=== PATIENT | male | born 1975 | race African-American/Black ===

== ENCOUNTER 2017-06-11 14:44 | Outpatient (CLI) | payer BC | END 2017-06-11 14:45 | disposition home or self-care (01) | LOC: BICMRI 14:44 | PROVIDERS: ATTEND Physician Assistant Surgical | DX: M51.16 Intervertebral disc disorders with radiculopathy, lumbar region (principal) | CPT/HCPCS: 72148 ==

== ENCOUNTER → 2017-07-06 | Day surgery (SDC) | payer BC ==
[2017-07-05 10:57] VITALS: BMI 38.7
[~2017-07-06] MED LIST: Bacitracin Zinc Ointment 30 gm TUBE ONE; CEFAZOLIN/Water 2 GM/20 ML SYRINGE ONE; Fentanyl 100 MCG/2 ML VIAL ONE; Fentanyl 250 MCG/5 ML VIAL ONE; Sodium Chloride 0.9% 10 ML ONE; Thrombin 5000 UNITS/5 ML VIAL ONE
[2017-07-06 10:55] LABS: Hemoglobin 13.8 g/dL (14.0-18.0); Mean Corpuscular HGB CONC 31.4 g/dL (32.0-36.0); Mean Corpuscular Hemoglobin 23.6 pg (27.0-31.0); Mean Corpuscular Volume 75.2 fl (80.0-94.0); Mean Platelet Volume 8.6 fL (7.4-10.4); Platelet Count 211 thou/uL (130-400); RBC Distribution Width 14.7 % (11.5-14.5); Red Blood Cell (RBC) Count 5.82 mill/uL (4.70-6.10); White Blood Cell (WBC) Count 6.8 thou/uL (4.8-10.8)
[2017-07-06 11:01] LABS: INR-International Normal Ratio 1.1; PTT 27.9 SEC (22.9-36.1)
[2017-07-06 11:13] LABS: Anion Gap 10 mmol/L (10-20); BUN (Urea Nitrogen) 11 mg/dL (8.9-20.6); Calc. Creatinine Clearance 139 mL/min (70-130); Calcium 9.4 mg/dL (7.8-10.44); Carbon Dioxide 27 mmol/L (22-29); Chloride 106 mmol/L (98-107); Estimated GFR-MDRD 86; Glucose 128 mg/dL (70-105); Potassium 4.1 mmol/L (3.5-5.1); Sodium 139 mmol/L (136-145)
== END ==
LOC: SDC 09:58
PROVIDERS: ATTEND Surgery
DX: M54.16 Radiculopathy, lumbar region (principal); I10 Essential (primary) hypertension; E78.5 Hyperlipidemia, unspecified; Z53.8 Procedure and treatment not carried out for other reasons; Z79.02 Long term (current) use of antithrombotics/antiplatelets; Z79.82 Long term (current) use of aspirin; Z79.899 Other long term (current) drug therapy; Z87.891 Personal history of nicotine dependence
CPT/HCPCS: 36415; 80048; 85027; 85610; 85730; 93005; 93010; A4216; J0131; J3010; J3370; J3490

== ENCOUNTER 2017-07-08 08:11 | Day surgery (SDC) | payer BC ==
[2017-07-08] MEDS ORDERED: Bacitracin Zinc Ointment 30 gm TUBE ONE (08:14)
[2017-07-08] MEDS ORDERED: Thrombin 5000 UNITS/5 ML VIAL ONE (08:14)
[2017-07-08] MEDS ORDERED: Sodium Chloride 0.9% 10 ML ONE (08:14)
[2017-07-08] MEDS ORDERED: Midazolam HCl 2 mg/2 ml Vial ONE (08:32)
[2017-07-08] MEDS ORDERED: Fentanyl 100 MCG/2 ML VIAL ONE ×2 (08:32→13:37)
[2017-07-08] MEDS ORDERED: Phenylephrine HCL 10 MG/ML VIAL ONE (09:16)
[2017-07-08] MEDS ORDERED: CEFAZOLIN/Water 2 GM/20 ML SYRINGE ONE (09:34)
[2017-07-08] MEDS ORDERED: Albuterol Sulfate HFA (OR ONLY) ONE (10:13)
[2017-07-08] MEDS ORDERED: Ondansetron HCl/PF 4 MG/2 ML Vial IVP PRN ×2 (13:07→13:12)
[2017-07-08] MEDS ORDERED: Promethazine HCl 25 MG/ML VIAL SLOW IVP PRN (13:07)
[2017-07-08] MEDS ORDERED: Promethazine HCl 25 MG/ML VIAL IM PRN ×2 (13:07→13:12)
[2017-07-08] MEDS ORDERED: Bisacodyl 10 MG SUPP PR PRN (13:12)
[2017-07-08] MEDS ORDERED: Fleet Enema 133 ML BOT PR PRN (13:12)
[2017-07-08] MEDS ORDERED: Acetaminophen/Codeine 30-300mg Tablet PO PRN (13:12)
[2017-07-08] MEDS ORDERED: Milk Of Magnesia 30 ML UDCUP PO PRN (13:12)
[2017-07-08] MEDS ORDERED: Acetaminophen 325 MG TAB PO PRN (13:12)
[2017-07-08] MEDS ORDERED: Mag-Al 1200 mg/1200 mg/30 ML UDCUP PO PRN (13:12)
[2017-07-08] MEDS ORDERED: Non-Formulary Item 1 EACH (Hydralazine Hcl [Hydralazine Hcl] 50 MG) PO SCH (15:00)
[2017-07-08 15:48] VITALS: BMI 40.3
[2017-07-08] MEDS: hydrALAZINE 25 MG TAB PO SCH ×2 (15:54→20:51)
[2017-07-08] MEDS: HYDROcodone/Acetaminophen 7.5/325 mg Tablet PO PRN ×2 (15:54→20:02)
[2017-07-08] MEDS: Sodium Chloride 0.9% 1,000 ML IV SCH (15:58)
[2017-07-08] MEDS ORDERED: CEFAZOLIN/Water 2 GM/20 ML SYRINGE SLOW IVP SCH (18:00)
[2017-07-08] MEDS: traMADol HCl 50 MG TAB PO PRN (18:23)
[2017-07-08] MEDS: CEFAZOLIN/Water 2 GM/20 ML SYRINGE SLOW IVP SCH (20:02)
[2017-07-08] MEDS: Metoprolol Tartrate 25 MG TAB PO SCH (20:52)
[2017-07-08] MEDS ORDERED: Atorvastatin Calcium 10 MG TAB PO SCH (21:00)
[2017-07-08] MEDS: tiZANidine HCl 4 MG TAB PO PRN (23:21)
--- NOTE | 2017-07-08 23:31 | OP ---
SURGEON: Layo Dunn MD FABRIC CUTTER: Braeden Weinberg PA-C PREPROCEDURE DIAGNOSES: Left S1 radiculopathy, left L5-S1 disk extrusion. POSTPROCEDURE DIAGNOSES: Left S1 radiculopathy, left L5-S1 disk extrusion. PROCEDURES: 1. Left L5-S1 hemilaminotomy, foraminotomy, and diskectomy. 2. Use of operative microscope for microdissection. DESCRIPTION OF PROCEDURE: After informed consent was obtained, the patient brought to OR. Proper pa tient pause and identification was carried out. He was placed prone on the OR table. Following gene ral anesthesia, L5-S1 segment was identified. Linear yomi was made. This region was sterilely clean sed, prepared, and draped. The wound was then opened and left L5-S1 hemilamina was exposed. Localiz ation confirmed our area of interest. Left L5-S1 hemilaminotomy was then performed with removal of y ellow ligament. The microscope was brought in for microdissection. Disk material was identified and removed. This resulted in excellent decompression of the left S1 nerve root I should free in the le ft L5 nerve root. Copious irrigation occurred. Hemostasis was maximized. The wound was closed in a natomic layers. There was no spinal fluid leak.
[2017-07-09] MEDS: HYDROcodone/Acetaminophen 7.5/325 mg Tablet PO PRN (03:39)
[2017-07-09] MEDS: CEFAZOLIN/Water 2 GM/20 ML SYRINGE SLOW IVP SCH (03:39)
[2017-07-09] MEDS: Sodium Chloride 0.9% 1,000 ML IV SCH (04:38)
[2017-07-09] MEDS: tiZANidine HCl 4 MG TAB PO PRN (05:59)
[2017-07-09 07:48] VITALS: TEMP 98.5
[2017-07-09] MEDS: Metoprolol Tartrate 25 MG TAB PO SCH (08:21)
[2017-07-09] MEDS: hydrALAZINE 25 MG TAB PO SCH (08:22)
[2017-07-09] MEDS: traMADol HCl 50 MG TAB PO PRN (08:22)
[2017-07-09 08:55] VITALS: BP 114/60
[2017-07-09] MEDS ORDERED: FLU VACC QS2017-18 36 mo. & older 0.5 ML SYRINGE IM ONE (09:00)
[2017-07-09] MEDS ORDERED: Lisinopril 20 MG TAB PO SCH (09:00)
== END 2017-07-09 09:58 | disposition home or self-care (01) ==
LOC: SDC 08:11 → SURG A 13:12 → SDC 07-09 09:58
PROVIDERS: ATTEND Surgery
PROC: 0SB20ZZ Excision of Lumbar Vertebral Disc, Open Approach (ICD-10-PCS; principal; 2017-07-09)
PROC: 01NB0ZZ Release Lumbar Nerve, Open Approach (ICD-10-PCS; principal; 2017-07-09)
DX: M51.17 Intervertebral disc disorders with radiculopathy, lumbosacral region (principal); Z79.82 Long term (current) use of aspirin; Z79.899 Other long term (current) drug therapy
CPT/HCPCS: 76001; 96374; A4216; J2250; J2370; J3010; J3490

== ENCOUNTER 2018-02-11 04:33 | Emergency (ER) | payer BC, OTHER ==
[2018-02-11] MEDS ORDERED: carBAMazepine 200 MG TAB PO SCH (05:00)
--- NOTE | 2018-02-11 08:09 | CT ---
PRELIMINARY REPORT/[facility]/EMERGENTY AFTER-HOURS PROCEDURE CT Head Without Intravenous Contrast EXAM DATE/TIME: 02/11/2018 5:16 AM CLINICAL HISTORY: 42 years old, male; Pain; Other: Face/ tooth pain; Patient HX: Er-8, CT brain w/o, shooting trigemina l nerve pain, m42 presents with intermittent stabbing l sided facial pain lasting 10-15 seconds that occurs about every hour and a half onset yesterday. PT states pain feels like a deep tooth ache. PT d enies any fb to ear. TECHNIQUE: Axial computed tomography images of the head/brain without intravenous contrast. COMPARISON: No relevant prior studies available. FINDINGS: Brain: Normal. No hemorrhage. No significant white matter disease. No edema. Ventricles: Normal. No ventriculomegaly. Bones/joints: Normal. No acute fracture. Sinuses: Normal as visualized. No acute sinusitis. Mastoid air cells: Normal as visualized. No mastoid effusion. Soft tissues: Normal. IMPRESSION: No acute intracranial abnormality. Thank you for allowing us to participate in the care of your patient. Dictated and Authenticated by: Alexander Dang MD 02/11/2018 5:32 AM Central Time ([place] & [place]) FINAL REPORT CT BRAIN WITHOUT CONTRAST: I agree with the preliminary report given by Dr. Alexander Dang of [facility]. POS: [facility]
== END 2018-02-11 05:48 | disposition home or self-care (01) ==
LOC: ERS 04:33
DX: G50.0 Trigeminal neuralgia (principal); I10 Essential (primary) hypertension; Z87.891 Personal history of nicotine dependence; Z79.899 Other long term (current) drug therapy; Z79.82 Long term (current) use of aspirin
CPT/HCPCS: 70450

== ENCOUNTER 2018-07-19 20:59 | Emergency (ER) | payer OTHER ==
[2018-07-19 21:28] LABS: #Basophils 0.1 thou/uL (0.0-0.2); #Eosinphils 0.2 thou/uL (0.0-0.7); #Lymphocytes 3.4 thou/uL (1.20-3.40); #Monocytes 0.9 thou/uL (0.11-0.59); #Neutrophils 5.4 thou/uL (1.40-6.50); %Basophils 1.1 % (0.0-1.0); %Eosinophils 2.3 % (0.0-10.0); %Monocytes 8.8 % (0.0-10.0); %Neutrophils 53.8 % (42.0-75.0); Hemoglobin 12.2 g/dL (14.0-18.0); Mean Corpuscular HGB CONC 31.4 g/dL (32.0-36.0); Mean Corpuscular Hemoglobin 23.7 pg (27.0-31.0); Mean Corpuscular Volume 75.6 fL (78.0-98.0); Mean Platelet Volume 8.6 fL (7.4-10.4); Platelet Count 251 thou/uL (130-400); RBC Distribution Width 14.4 % (11.5-14.5); Red Blood Cell (RBC) Count 5.13 mill/uL (4.70-6.10); White Blood Cell (WBC) Count 10.1 thou/uL (4.8-10.8)
--- NOTE | 2018-07-19 21:29 | RAD ---
CHEST ONE VIEW: 07/19/18 at 9:21 p.m. HISTORY: Left sided chest pain. FINDINGS: Comparison made with exam of 12/23/15. The heart size is normal. The lungs are expanded without focal areas of consolidation, pneumothoraces , or pleural effusions. IMPRESSION: No radiographic evidence of acute cardiopulmonary process. POS: [facility]
[2018-07-19 21:52] LABS: ALT (SGPT) 22 U/L (8-55); AST (SGOT) 16 U/L (5-34); Albumin 4.2 g/dL (3.5-5.0); Alkaline Phosphatase 109 U/L (40-150); Anion Gap 11 mmol/L (10-20); BUN (Urea Nitrogen) 12 mg/dL (8.9-20.6); Bilirubin, Total 0.2 mg/dL (0.2-1.2); CK (CPK) 619 U/L (30-200); Calc. Creatinine Clearance 0 mL/min (70-130); Calcium 9.5 mg/dL (7.8-10.44); Carbon Dioxide 25 mmol/L (22-29); Chloride 105 mmol/L (98-107); Estimated GFR-MDRD Greater than 90; Globulin 3.5 g/dL (2.4-3.5); Glucose 137 mg/dL (70-105); Lipase 25 U/L (8-78); Potassium 3.3 mmol/L (3.5-5.1); Protein, Total 7.7 g/dL (6.0-8.3); Sodium 138 mmol/L (136-145)
== END 2018-07-19 22:44 | disposition left against medical advice (07) ==
LOC: ERS 20:59
DX: Z53.21 Procedure and treatment not carried out due to patient leaving prior to being seen by health care provider (principal)
CPT/HCPCS: 36415; 71045; 80053; 82550; 83690; 83880; 84484; 85025; 93005

== ENCOUNTER 2019-01-17 08:33 | Outpatient (CLI) | payer OTHER ==
--- NOTE | 2019-01-17 09:05 | RAD ---
EXAM: XR Lumbar Spine Min 4 View PROVIDED CLINICAL HISTORY: Low back pain and left leg pain. COMPARISON: 05/13/2016 FINDINGS: The vertebral body heights are within normal limits. There is mild right convex curvature of the thor acolumbar spine. No fracture or subluxation is visualized. No abnormal translational motion is seen between the flexion and extension views. Minimal osteophytes are seen in the lower thoracic spine and to a lesser degree involving the lumbar spine. Views of the lower lumbar spine are stable compared to prior exam. IMPRESSION: Stable appearance of the lumbar spine with minimal degenerative changes, but no fracture or subluxati on is present.
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
[2019-01-17] MEDS ORDERED: Gadobenate Dimeglumine 529 MG/1 ML (20ML VIAL) ONE (10:09)
== END 2019-01-17 08:34 | disposition home or self-care (01) ==
LOC: TBSIIMAG 08:33
PROVIDERS: ATTEND Surgery
DX: M79.605 Pain in left leg (principal); M54.5 Low back pain; M47.816 Spondylosis without myelopathy or radiculopathy, lumbar region; M51.36 Other intervertebral disc degeneration, lumbar region; M48.061 Spinal stenosis, lumbar region without neurogenic claudication; D18.09 Hemangioma of other sites; L90.5 Scar conditions and fibrosis of skin
CPT/HCPCS: 72110; 72158; A9577

== ENCOUNTER 2019-06-13 12:18 | Outpatient (CLI) | payer BC ==
[2019-06-13 12:55] LABS: Hemoglobin 13.7 g/dL (14.0-18.0); Mean Corpuscular HGB CONC 31.8 g/dL (32.0-36.0); Mean Corpuscular Hemoglobin 24.1 pg (27.0-31.0); Mean Platelet Volume 8.5 fL (7.4-10.4); Platelet Count 220 thou/uL (130-400); RBC Distribution Width 14.6 % (11.5-14.5); Red Blood Cell (RBC) Count 5.68 mill/uL (4.70-6.10); White Blood Cell (WBC) Count 7.1 thou/uL (4.8-10.8)
[2019-06-13 13:11] LABS: INR-International Normal Ratio 0.9; Prothrombin Time 12.6 SEC (12.0-14.7)
[2019-06-13 13:17] LABS: Anion Gap 15 mmol/L (10-20); BUN (Urea Nitrogen) 15 mg/dL (8.9-20.6); Calc. Creatinine Clearance 0 mL/min (70-130); Calcium 10.1 mg/dL (7.8-10.44); Carbon Dioxide 28 mmol/L (22-29); Chloride 102 mmol/L (98-107); Estimated GFR-MDRD 76; Glucose 95 mg/dL (70-105); Potassium 3.8 mmol/L (3.5-5.1); Sodium 141 mmol/L (136-145)
[2019-06-13 13:29] LABS: PTT 25.9 SEC (22.9-36.1)
--- NOTE | 2019-06-15 08:25 | EKG ---
Test Reason : Blood Pressure : / mmHG Vent. Rate : 091 BPM Atrial Rate : 091 BPM P-R Int : 146 ms QRS Dur : 086 ms QT Int : 334 ms P-R-T Axes : 071 071 028 degrees QTc Int : 410 ms Normal sinus rhythm Normal ECG No previous ECGs available Confirmed by DR. Tosin LAWRENCE ([id number]) on 06/15/2019 8:25:18 AM Referred By: CHARO Confirmed By:DR. Tosin LAWRENCE
== END 2019-06-13 12:19 | disposition home or self-care (01) ==
LOC: LABBT 12:18
PROVIDERS: ATTEND Surgery
DX: Z01.818 Encounter for other preprocedural examination (principal)
CPT/HCPCS: 80048; 85027; 85610; 85730; 93005; 93010

== ENCOUNTER 2019-06-15 06:01 | Day surgery (SDC) | payer BC ==
[2019-06-13 12:12] VITALS: BMI 39.5
[2019-06-15] MEDS ORDERED: Thrombin 5000 UNITS/5 ML VIAL ONE (06:51)
[2019-06-15] MEDS ORDERED: Fentanyl 250 MCG/5 ML VIAL ONE (07:00)
[2019-06-15] MEDS ORDERED: Midazolam HCl 2 mg/2 ml Vial ONE (07:14)
[2019-06-15] MEDS ORDERED: Phenylephrine 10 MG/ML VIAL ONE (08:41)
[2019-06-15] MEDS ORDERED: HYDROmorphone 2 MG/ML VIAL SLOW IVP PRN (09:18)
[2019-06-15] MEDS ORDERED: Morphine Sulfate 2 MG/ML SYRINGE SLOW IVP PRN (09:18)
[2019-06-15] MEDS ORDERED: Promethazine HCl 25 MG/ML VIAL SLOW IVP PRN (09:18)
[2019-06-15] MEDS ORDERED: Promethazine HCl 25 MG/ML VIAL IM PRN (09:18)
[2019-06-15] MEDS ORDERED: Ondansetron HCl/PF 4 MG/2 ML Vial IVP PRN (09:18)
[2019-06-15] MEDS ORDERED: PACU-Morphine 4MG/ML VIAL SLOW IVP PRN (09:18)
[2019-06-15] MEDS ORDERED: Bisacodyl 10 MG SUPP PR PRN (09:52)
[2019-06-15] MEDS ORDERED: Milk Of Magnesia 30 ML UDCUP PO PRN (09:52)
[2019-06-15] MEDS ORDERED: Fleet Enema 133 ML BOT PR PRN (09:52)
[2019-06-15] MEDS ORDERED: Acetaminophen/Codeine 30-300mg Tablet PO PRN (09:52)
[2019-06-15] MEDS ORDERED: Ondansetron PF 4 MG/2 ML Vial IVP PRN (09:52)
[2019-06-15] MEDS ORDERED: traMADol HCl 50 MG TAB PO PRN (09:52)
[2019-06-15] MEDS ORDERED: Acetaminophen 325 MG TAB PO PRN (09:52)
[2019-06-15] MEDS ORDERED: Morphine 2 MG/ML SYRINGE SLOW IVP PRN (09:52)
[2019-06-15] MEDS ORDERED: Mag-Al 1200 mg/1200 mg/30 ML UDCUP PO PRN (09:52)
[2019-06-15] MEDS ORDERED: HYDROmorphone 2 MG/ML VIAL ONE (10:03)
[2019-06-15] MEDS ORDERED: Fentanyl 100 MCG/2 ML VIAL ONE ×2 (10:49→11:44)
[2019-06-15] MEDS ORDERED: Rocuronium Bromide 10 MG/ML (10ML VIAL) ONE (12:00)
[2019-06-15] MEDS ORDERED: Lidocaine 1% PF 5 ML VIAL ONE (12:00)
[2019-06-15] MEDS ORDERED: Glycopyrrolate 0.2 MG/ML 5 ML SYRINGE ONE (12:00)
[2019-06-15] MEDS ORDERED: PHENYLEPHRINE-NS 100 MCG/ML 10 ML SYRINGE ONE (12:00)
[2019-06-15] MEDS ORDERED: Ondansetron PF 4 MG/2 ML Vial ONE (12:00)
[2019-06-15] MEDS ORDERED: Dexamethasone 20 MG/5 ML VIAL ONE (12:00)
[2019-06-15] MEDS ORDERED: Ketorolac Tromethamine 30 MG/ML VIAL ONE (12:00)
[2019-06-15] MEDS ORDERED: PROPOFOL 200 MG/20 ML VIAL ONE (12:00)
[2019-06-15] MEDS ORDERED: EPHEDRINE 25 MG/5 ML SYRINGE ONE (12:00)
[2019-06-15] MEDS: HYDROcodone/Acetaminophen 7.5/325 mg Tablet PO PRN ×3 (13:38→21:28)
[2019-06-15] MEDS: tiZANidine HCl 4 MG TAB PO PRN ×2 (13:38→21:28)
[2019-06-15] MEDS: Sodium Chloride 0.9% 1,000 ML IV SCH ×2 (13:58→20:07)
--- NOTE | 2019-06-15 14:58 | OP ---
DATE OF PROCEDURE: 06/15/2019 NEWSPAPER DELIVERY COUNSELOR: Gena De Souza PA-C PREPROCEDURE DIAGNOSES: 1. Concern of recurrent L5-S1 disk extrusion with new L4-L5 disk extrusion. 2. Left L5 and left S1 radiculopathies. POSTPROCEDURE DIAGNOSES: 1. Concern of recurrent L5-S1 disk extrusion with new L4-L5 disk extrusion. 2. Left L5 and left S1 radiculopathies. PROCEDURES PERFORMED: 1. Left L4-L5 hemilaminotomy, foraminotomy, and diskectomy. 2. Revision left L5-S1 hemilaminotomy, foraminotomy, and diskectomy. 3. Use of operative microscope for microdissection. DESCRIPTION OF PROCEDURE: After informed consent was obtained from the patient, the patient was brought to the OR. Proper patient, pause, and identification were carried out. The prior wound was identified. This area was sterilely cleansed, prepared, and draped. Proper patient, pause, and identification were carried out. The wound was then opened with a combination of sharp, monopolar, and blunt dissection. The left L4-L5 and left L5-S1 segments were exposed. The microscope was brought into the field and we performed a left L4-L5 hemilaminotomy, foraminotomy, and diskectomy and also revision left L5-S1 hemilaminotomy and diskectomy as there was recurrent disk there as well. We had excellent decompression of left L5 and left S1 nerve roots. Copious irrigation occurred throughout as did maximizing hemostasis. The wound was then closed in anatomic layers following sprinkling of vancomycin powder. The patient then emerged from anesthesia. Job ID: [id number]
[2019-06-15] MEDS: CEFAZOLIN 2 GM in Premix Bag 1 BAG IVPB SCH ×2 (15:41→20:06)
[2019-06-15] MEDS: hydrALAZINE 25 MG TAB PO SCH ×2 (15:46→20:05)
[2019-06-15] MEDS ORDERED: Atorvastatin Calcium 10 MG TAB PO SCH (21:00)
[2019-06-16] MEDS: HYDROcodone/Acetaminophen 7.5/325 mg Tablet PO PRN (04:53)
[2019-06-16] MEDS: tiZANidine HCl 4 MG TAB PO PRN (04:53)
[2019-06-16] MEDS: hydrALAZINE 25 MG TAB PO SCH (08:55)
[2019-06-16] MEDS ORDERED: Amlodipine 10 MG TAB PO SCH (09:00)
[2019-06-16] MEDS ORDERED: Lisinopril 20 MG TAB PO SCH (09:00)
[2019-06-16] MEDS ORDERED: Aspirin 81 mg Enteric Coated Tablet PO SCH (10:45)
[2019-06-16 11:04] VITALS: BP 121/69; TEMP 97.9
--- NOTE | 2019-06-16 12:30 | PRG ---
DATE OF SERVICE: 06/16/2019 Mr. Dejesus is doing well postoperative day 1 following left L4-L5 and left L5-S1 decompressions and diskectomies. He has had resolution in his leg pain with excellent strength. He is mobilizing given his cardiac risk. We will reinitiate his aspirin. He will follow up in a couple of weeks with us for wound check, and we went over do's and don'ts in the postoperative period. Job ID: [id number]
[2019-06-16] MEDS: Sodium Chloride 0.9% 1,000 ML IV SCH (13:51)
== END 2019-06-16 13:40 | disposition home or self-care (01) ==
LOC: SDC 06:01 → SURG A 12:09 → SDC 06-16 13:40
PROVIDERS: ATTEND Surgery
PROC: 0SB20ZZ Excision of Lumbar Vertebral Disc, Open Approach (ICD-10-PCS; principal; 2019-06-15)
DX: M51.16 Intervertebral disc disorders with radiculopathy, lumbar region (principal); M51.17 Intervertebral disc disorders with radiculopathy, lumbosacral region; Z79.82 Long term (current) use of aspirin; Z79.899 Other long term (current) drug therapy; Z95.5 Presence of coronary angioplasty implant and graft
CPT/HCPCS: 76000; J0690; J1100; J1170; J1885; J2001; J2250; J2370; J2405; J2704; J3010; J3370; J3490

== ENCOUNTER 2019-06-29 04:02 | Emergency (ER) | payer BC ==
[2019-06-29] MEDS ORDERED: diphenhydrAMINE 50 MG/ML VIAL ONE (04:32)
[2019-06-29] MEDS ORDERED: methylPREDNISolone Sod Succ/PF 125 MG/2 ML VIAL ONE (04:32)
[2019-06-29] MEDS ORDERED: Famotidine/PF 20 mg/2ml Vial ONE (04:32)
== END 2019-06-29 06:29 | disposition home or self-care (01) ==
LOC: ERS 04:02
DX: T78.3XXA Angioneurotic edema, initial encounter (principal); I10 Essential (primary) hypertension; I25.2 Old myocardial infarction; Z87.891 Personal history of nicotine dependence; Z79.82 Long term (current) use of aspirin; Z79.899 Other long term (current) drug therapy
CPT/HCPCS: 96374; 96375; J1200; J2930; S0028

== ENCOUNTER 2019-11-01 13:35 | Emergency (ER) | payer BC, OTHER ==
[2019-11-02 14:47] LABS: SARS-CoV-2 MS2 Positive; SARS-CoV-2 N Gene Negative; SARS-CoV-2 S Gene Negative; SARS-CoV-2 orf1ab Negative
== END 2019-11-01 14:05 | disposition home or self-care (01) ==
LOC: ERS 13:35
DX: R51 Headache (principal); Z20.828 Contact with and (suspected) exposure to other viral communicable diseases; I10 Essential (primary) hypertension; I25.2 Old myocardial infarction; Z87.891 Personal history of nicotine dependence
CPT/HCPCS: 87635; 99283; U0003